=== PATIENT | male | born 1945 | race Caucasian/White ===

== ENCOUNTER → 2016-09-07 | Outpatient (CLI) | payer OTHER ==
--- NOTE | ~2016-09-07 | 2DMMODE ---
[facility] [address] [place] [address] 2 D/M-MODE ECHOCARDIOGRAM Name: ODETTE ZAMORA Room #: REG [facility]#: [id number] Admission: 09/07/16 Attend Phys: Jacob Hinton MD Discharge: Date of : 43 Date of Service: 09/07/16 1135 Report #: [id number] THIS REPORT FOR: //name// APPROVED REPORT Study performed: 09/07/2016 10:30:58 EXAM: Comprehensive 2D, Doppler, and color-flow Echocardiogram Patient Location: Out-Patient Blood Pressure: 180/105 mmHg HR: 75 bpm Rhythm: NSR Other Information Study Quality: Adequate Indications Dyspnea Positive calcium score 2D Dimensions RVDd: 40.85 mm LVEF(%): 79.26 (>50%) IVSd: 13.93 (7-11mm) LVOT Diam: 22.82 (18-24mm) LVDd: 48.36 mm PWd: 13.21 (7-11mm) LVDs: 25.17 (25-40mm) Aortic Root: 31.29 mm Rubio's LVEF: 79.26 % Volumes Left Atrial Volume (Systole) Single Plane 4CH: 54.21 mL Single Plane 2CH: 72.44 mL LA ESV Index: 33.00 mL/m2 Aortic Valve AoV Peak Ralph.: 1.21 m/s AO Peak Gr.: 5.82 mmHg LVOT Max P.47 mmHg LVOT Max V: 1.06 m/s JASPREET Vmax: 3.58 cm2 Mitral Valve E/A Ratio: 1.0 [facility] [address] [address] 2 D/M-MODE ECHOCARDIOGRAM Name: SERAODETTE M Room #: REG [facility]#: [id number] Admission: 09/07/16 Attend Phys: Jacob Hinton MD Discharge: Date of : 43 Date of Service: 09/07/16 1135 Report #: [id number] MV Decel. Time: 247.69 ms MV E Max Ralph.: 0.70 m/s MV A Ralph.: 0.67 m/s MV PHT: 71.83 ms IVRT: 110.73 ms Pulmonary Valve PV Peak Ralph.: 0.99 m/s PV Peak Gr.: 3.92 mmHg Pulmonary Vein P Vein S: 0.49 m/s P Vein D: 0.43 m/s P Vein S/D Ratio: 1.14 Tricuspid Valve RAP Estimate: 5.00 mmHg Left Ventricle The left ventricle is normal size. There is normal LV segmental wall motion. Mild concentric left ventricular hypertrophy. The left ventricular systolic function is normal. The left ventricular ejection fraction is within the normal range. LVEF is 60%. Grade I - abnormal relaxation pattern. Right Ventricle The right ventricle is normal size. The right ventricular systolic function is normal. Atria The left atrium size is normal. The right atrium size is normal. Aortic Valve The aortic valve is normal in structure. No aortic regurgitation is present. There is no aortic valvular stenosis. Mitral Valve The mitral valve is normal in structure. Trace mitral regurgitation. No evidence of mitral valve stenosis. Tricuspid Valve The tricuspid valve is normal in structure. Trace tricuspid regurgitation. Pulmonic Valve The pulmonary valve is normal in structure. Trace pulmonic [facility] [place] [address] 2 D/M-MODE ECHOCARDIOGRAM Name: ODETTE ZAMORA JR Room #: [facility]#: [id number] Admission: 09/07/16 Attend Phys: Jacob Hinton MD Discharge: Date of : 43 Date of Service: 09/07/16 1135 Report #: [id number] regurgitation. Great Vessels The aortic root is normal in size. IVC is normal in size and collapses >50% with inspiration. Pericardium There is no pericardial effusion. <Conclusion> The left ventricle is normal size. The left ventricular systolic function is normal. The right ventricle is normal size. The left atrium size is normal. The aortic valve is normal in structure. Trace mitral regurgitation. Trace tricuspid regurgitation. There is no pericardial effusion. <ELECTRONICALLY SIGNED> By: Jacob Hinton MD 09/07/16 1135 1135 1135 Jacob Hinton MD /SHAY
== END ==
LOC: NUC 08-25 13:05
DX: R06.02 Shortness of breath (principal); I10 Essential (primary) hypertension; E78.5 Hyperlipidemia, unspecified